=== PATIENT | female | born 1990 | race Caucasian/White ===

== ENCOUNTER 2019-11-08 03:44 | Emergency (ER) | payer BC ==
[~2019-11-08] VITALS: Ht 170.2 cm; Wt 69.4 kg
[~2019-11-08 03:44] MED LIST: ALPR.25; ALPR.5 PO; ALPR1 PO; BUSP5 PO; Bactrim Ds Tab1 EACH PO; CIPR500 PO; CRUTCH4 USE; Flomax0.4 MG PO; HYDACE5 PO; Hydroxyzine HCl50 MG; IBUP200; LAMO100 PO; LITH300C PO; META800 PO; NAPR500 PO; NUVIGIL50 MG; Nuvaring Vagin1 EACH; PROM25 PO; QUETIAPINE FUM100 MG PO; REXULTI1 MG PO; ZOLP10 PO; Zofran Odt4 MG SL
[2019-11-08] MEDS ORDERED: Klonopin0.5 MG (04:41)
== END 2019-11-08 07:10 | disposition home or self-care (01) ==
LOC: ER 03:44
DX: T42.4X1A Poisoning by benzodiazepines, accidental (unintentional), initial encounter (principal); F10.129 Alcohol abuse with intoxication, unspecified; F31.9 Bipolar disorder, unspecified; F41.9 Anxiety disorder, unspecified; F43.10 Post-traumatic stress disorder, unspecified; N17.9 Acute kidney failure, unspecified; F17.210 Nicotine dependence, cigarettes, uncomplicated; Z88.0 Allergy status to penicillin; Z79.899 Other long term (current) drug therapy

== ENCOUNTER 2021-02-09 11:27 | Emergency (ER) | payer BC ==
[~2021-02-09] VITALS: Ht 170.2 cm; Wt 70.3 kg
[~2021-02-09 11:27] MED LIST changes: +Klonopin0.5 MG PO; +NUVIGIL200 MG PO; -NUVIGIL50 MG; +Norco 5-325 Ta1 EACH PO; +PRED10 PO
[2021-02-09 12:09] LABS: BASOPHILS ABSOLUTE AUTO 0.08 K/mm3 (0.00-0.23); BASOPHILS PERCENT AUTO 1 % (0-2); EOSINOPHILS ABSOLUTE AUTO 0.18 K/mm3 (0.00-0.68); EOSINOPHILS PERCENT AUTO 1 % (0-6); Hemoglobin 14.7 g/dL (11.5-16.0); IMMATURE GRAN ABSOLUTE AUTO 0.07 K/mm3 (0.00-0.10); IMMATURE GRAN PERCENT AUTO 0 % (0-1); LYMPHOCYTES PERCENT AUTO 8 % (21-46); MONOCYTES ABSOLUTE AUTO 0.67 K/mm3 (0.16-1.47); MONOCYTES PERCENT AUTO 4 % (4-13); Mean Corpuscular HGB 31.3 pg (26.0-34.0); Mean Corpuscular HGB Conc 34.2 g/dL (31.5-36.5); Mean Corpuscular Volume 92 fL (80-100); Mean Platelet Volume 10.3 fL (9.1-12.4); NEUTROPHILS ABSOLUTE AUTO 13.72 K/mm3 (1.96-9.15); NEUTROPHILS PERCENT AUTO 86 % (41-73); Platelet Count 268 K/mm3 (150-400); RDW Coefficient Variation 11.7 % (11.7-14.2); Red Blood Cell Count 4.69 M/mm3 (3.80-5.20); White Blood Cell Count 16.02 K/mm3 (4.00-11.30)
[2021-02-09 12:42] LABS: Alanine Aminotransfer (ALT/SGP 17 U/L (12-78); Albumin, Blood 3.9 g/dL (3.4-5.0); Albumin/Globulin Ratio 1.1 (0.8-1.8); Alk Phos 82 U/L (50-136); Anion Gap 10 mmol/L (6-16); Aspartate Aminotrans (AST/SGOT 13 U/L (12-37); Bilirubin, Total 0.3 mg/dL (0.1-1.0); Blood Urea Nitrogen 9 mg/dL (8-24); Bun/Creatinine Ratio 10.6 (12.0-20.0); CO2, Blood 24 mmol/L (21-32); Calcium, Blood 8.7 mg/dL (8.5-10.1); Chloride, Blood 104 mmol/L (98-108); Creatinine, Blood 0.85 mg/dL (0.40-1.00); Globulin, Blood 3.5 g/dL (2.2-4.0); Glomerular Filtration Rate >60 (60-); Glucose, Blood 92 mg/dL (70-99); Potassium, Blood 3.8 mmol/L (3.5-5.5); Sodium, Blood 138 mmol/L (136-145); Total Protein, Blood 7.4 g/dL (6.4-8.2)
[2021-02-09 12:51] LABS: Source, Urine Clean Catch
[2021-02-09 12:57] LABS: Appearance, Urine Hazy (Clear); Bilirubin, Urine Neg (Neg); Blood, Urine Neg (Neg); Color, Urine Yellow (P-Yellow); Glucose Qualitative, Urine Neg (Neg); Ketones, Urine 2+ (Neg); Leukocyte Esterase, Urine 3+ (Neg); Nitrite, Urine Neg (Neg); Protein, Urine 2+ (Neg); Specific Gravity, Urine 1.015 (1.003-1.022); Urobilinogen, Urine NORM (Normal)
[2021-02-09 13:08] LABS: White Blood Cells, Urine TNTC /hpf (0-5)
[2021-02-09 13:09] LABS: Bacteria Mod /hpf; Squamous Epithelial Cells Rare /hpf (Few)
[2021-02-09] MEDS ORDERED: Macrobid 100 M100 MG PO (14:31)
== END 2021-02-09 14:50 | disposition home or self-care (01) ==
LOC: ER 11:27
PROVIDERS: Emergency Medicine
DX: N39.0 Urinary tract infection, site not specified (principal); F41.0 Panic disorder [episodic paroxysmal anxiety]; R51.9 Headache, unspecified; Z79.899 Other long term (current) drug therapy
CPT/HCPCS: 80053; 81001; 83690; 85025; 87077; 87086; 87186; 93005; 93010; 96374; 96375; 99284-25; A9270; J1790; J1885